=== PATIENT | male | born 1985 ===

== ENCOUNTER 2018-03-21 18:20 | Emergency (ER) | payer SELFPAY ==
[2018-03-21 18:20] VITALS: BMI 29.7
[2018-03-21 18:30] VITALS: BP 123/90; PULSE 109; RESP 20; TEMP 98.3; O2SAT 97
--- NOTE | 2018-03-21 19:21 | C.PDOC ---
History Of Present Illness 32 y/o male c/o right knee pain after he twisted his knee while playing soccer 2 days ago. Pt states that he was seen at [facility]. he had X- Rays done and he was given knee immobilizer and crutches. pt c/o pain; says he was not sent home with any analgesics; took some tylenol at home with no releif. pt has appt with ortho in 3 weeks. Time Seen by Provider: 03/21/18 18:50 Chief Complaint (Nursing): Lower Extremity Problem/Injury History Per: Patient History/Exam Limitations: no limitations Onset/Duration Of Symptoms: Days Current Symptoms Are (Timing): Still Present Severity: Moderate Past Medical History Reviewed: Historical Data, Nursing Documentation, Vital Signs Vital Signs: Last Vital Signs Temp 98.3 F 03/21/18 18:27 Pulse 109 H 03/21/18 18:27 Resp 20 03/21/18 18:27 BP 123/90 03/21/18 18:27 Pulse Ox 97 03/21/18 20:56 - Medical History PMH: Asthma Denies: Depression, Chronic Kidney Disease Other Surgeries: Hx of surgeries - [facility] Procedures IMMOBILIZ/WOUND ATTN NEC (05/06/14) INJECT/INFUSE NEC (11/23/14) INTRODUCTION OF ANTI-INFLAM INTO RESP TRACT, VIA OPENING (03/12/18) INTRODUCTION OF SERUM/TOX/VACCINE INTO MUSCLE, PERC APPROACH (03/12/18) Family History: States: No Known Family Hx - Social History Hx Alcohol Use: No Hx Substance Use: No Review Of Systems Musculoskeletal: Positive for: Other (right knee pain) Neurological: Negative for: Weakness, Numbness Physical Exam - Physical Exam Appears: Non-toxic, No Acute Distress Skin: Warm, Dry Extremity: Normal ROM, Other (RLE: knee immobilizer in place, dec rom at knkee due to pain. motor strenght and sensation intact, +2 dp pulse. ) Pulses: Right Dorsalis Pedis: Normal (+2) Neurological/Psych: Oriented x3, Normal Speech, Normal Cognition, Normal Motor, Normal Sensation ED Course And Treatment O2 Sat by Pulse Oximetry: 97 (RA) Pulse Ox Interpretation: Normal Medical Decision Making Medical Decision Making: Plan: --Motrin PO Updates: pt advised to take ibuprofen for pain, use crutches, limit weight bearing and f/ u ortho. cold compresses. pt understand.s Disposition - Disposition Referrals: Iza Edmond MD [Staff Provider] - Disposition: HOME/ ROUTINE Disposition Time: 19:35 Condition: IMPROVED Additional Instructions: Please use cold compresses several tinmes a day on knee. Limit weight bearing and use crutches. Take ibuprofen (Advil) as prescribed, unless it bothers your asthma- then switch to Tylenol. Follow up with Dr Edmond (orthopedics) as scheduled. Prescriptions: Ibuprofen [Motrin] 600 mg PO TID #30 tab Instructions: Knee Sprain (DC) Forms: General Discharge Instructions, [facility] (Turkmen) - Clinical Impression Clinical Impression: Right knee sprain, Knee pain, right - PA / PLANT CONTROL AIDE / Resident Statement MD/DO has reviewed & agrees with the documentation as recorded. - Scribe Statement The provider has reviewed the documentation as recorded by the Joeibe Rex Jacobs Provider Attestation All medical record entries made by the Scribe were at my direction and personally dictated by me. I have reviewed the chart and agree that the record accurately reflects my personal performance of the history, physical exam, medical decision making, and the department course for this patient. I have also personally directed, reviewed, and agree with the discharge instructions and disposition.
--- NOTE | 2018-03-21 19:22 | C.PDOC ---
History Of Present Illness 32 y/o male c/o right knee pain after he twisted his knee while playing soccer 3 days ago. Pt states that he was seen at [facility]. he had X- Rays done and he was given knee immobilizer and crutches. Pt reports that he took some Tylenol however he still has pain. He has apt with ortho in 3 wks. Denies NSAIDS. Time Seen by Provider: 03/21/18 18:50 Chief Complaint (Nursing): Lower Extremity Problem/Injury Past Medical History Vital Signs: Last Vital Signs Temp 98.3 F 03/21/18 18:27 Pulse 109 H 03/21/18 18:27 Resp 20 03/21/18 18:27 BP 123/90 03/21/18 18:27 Pulse Ox 97 03/21/18 19:42 - Medical History PMH: Asthma Denies: Depression, Chronic Kidney Disease - [facility] Procedures IMMOBILIZ/WOUND ATTN NEC (05/06/14) INJECT/INFUSE NEC (11/23/14) INTRODUCTION OF ANTI-INFLAM INTO RESP TRACT, VIA OPENING (03/12/18) INTRODUCTION OF SERUM/TOX/VACCINE INTO MUSCLE, PERC APPROACH (03/12/18) Family History: States: Unknown Family Hx - Social History Hx Alcohol Use: No Hx Substance Use: No ED Course And Treatment O2 Sat by Pulse Oximetry: 97 Medical Decision Making Medical Decision Making: pt advised to take ibuprofen for pain, use crutches, limit weight bearing and f/ u ortho. cold compresses. pt understand.s Disposition Counseled Patient/Family Regarding: Diagnosis, Need For Followup, Rx Given - Disposition Referrals: Iza Edmond MD [Staff Provider] - Disposition: HOME/ ROUTINE Disposition Time: 19:21 Condition: IMPROVED Additional Instructions: Please use cold compresses several tinmes a day on knee. Limit weight bearing and use crutches. Take ibuprofen (Advil) as prescribed, unless it bothers your asthma- then switch to Tylenol. Follow up with Dr Edmond (orthopedics) as scheduled. Prescriptions: Ibuprofen [Motrin] 600 mg PO TID #30 tab Instructions: Knee Sprain (DC) Forms: General Discharge Instructions, [facility] (Nepali) - Clinical Impression Clinical Impression: Right knee sprain, Knee pain, right
== END 2018-03-21 19:37 | disposition home or self-care (01) ==
LOC: C.ER 18:20
DX: S83.91XA Sprain of unspecified site of right knee, initial encounter (principal); X50.1XXA Overexertion from prolonged static or awkward postures, initial encounter; Y93.66 Activity, soccer; Y92.39 Other specified sports and athletic area as the place of occurrence of the external cause; M25.561 Pain in right knee